=== PATIENT | male | born 1985 | race Caucasian/White ===

== ENCOUNTER 2017-01-22 13:41 | Emergency (ER) | payer MEDICAID ==
[~2017-01-22] VITALS: Ht 165.1 cm; Wt 57.6 kg
[~2017-01-22 13:41] MED LIST: DOCU-131 PO; HYDR-3240 PO; NITR100C56 PO; OXYC-302 PO; TAMS-11 PO
[2017-01-22 13:44] VITALS: BP 104/65
[2017-01-22] MEDS ORDERED: HYDROcodone/APAP 5/325 TABLET ONE (14:23)
[2017-01-22] MEDS ORDERED: HYDROcodone/APAP 5/325 TABLET PO ONE (14:30)
== END 2017-01-22 14:53 | disposition home or self-care (01) ==
LOC: ED 14:10
DX: K04.7 Periapical abscess without sinus (principal)
CPT/HCPCS: 99283